=== PATIENT | male | born 1995 | race Caucasian/White ===

== ENCOUNTER 2023-09-01 17:31 | Emergency (ER) | payer BC ==
[~2023-09-01] VITALS: Ht 167.6 cm; Wt 65.8 kg
[2023-09-01 19:44] VITALS: BP 98/45; TEMP 98.2; O2SAT 100
== END 2023-09-01 19:46 | disposition home or self-care (01) ==
LOC: ER 17:40
DX: R51.9 Headache, unspecified (principal)